=== PATIENT | female | born 1995 | race Caucasian/White ===

== ENCOUNTER 2019-01-09 09:24 | Emergency (ER) | payer SELFPAY ==
[~2019-01-09] VITALS: Ht 167.6 cm; Wt 110.4 kg
[2019-01-09 09:29] VITALS: BP 74/48
--- NOTE | 2019-01-09 09:42 | NUR ---
PT PLACED IN CHAIR C, WAITING FOR BED 9 TO BE CLEANED, ER MD NOTIFIED OF PT CONDITION.
--- NOTE | 2019-01-09 09:47 | NUR ---
PT TO ER BED 9
--- NOTE | 2019-01-09 10:25 | NUR ---
PATIENT PRESENTS TO ED WITH C/O STABBING CHEST PAIN THAT RADIATES TO BACK AND EPIGASTRIC PAIN. PAIN 8/10. PT C/O PAIN WHEN TAKING DEEP BREATHS. PT STATES PAIN STARTED YESTERDAY. PT TACHYCARDIC AT 120. EKG DONE. DR RESTREPO HAS EVALUATED PT.
[2019-01-09] MEDS ORDERED: NACL 0.9% 1,500 ML IV SCH (10:47)
[2019-01-09] MEDS ORDERED: KETOROLAC 30 MG/ML VIAL IVP ONE (10:50)
[2019-01-09] MEDS ORDERED: ONDANSETRON 4 MG/2 ML VIAL IVP ONE (10:50)
--- NOTE | 2019-01-09 11:05 | NUR ---
LAB AT BEDSIDE
--- NOTE | 2019-01-09 11:09 | NUR ---
US AT BEDSIDE
[2019-01-09 11:14] LABS: BASOPHILS % (AUTO) 0.2 % (0.0-2.0); EOSINOPHILS % (AUTO) 0.1 % (0.0-4.0); HEMATOCRIT 35.5 % (36-48); HEMOGLOBIN 11.5 g/dL (12.0-16.0); LYMPHOCYTES # (AUTO) 0.8 K/uL (2.5-16.5); LYMPHOCYTES % (AUTO) 7.6 % (20.5-51.1); MEAN CORPUSCULAR HEMOGLOBIN 23 pg (27-31); MEAN CORPUSCULAR HGB CONC 32 g/dL (33-37); MEAN CORPUSCULAR VOLUME 72.3 fL (80-94); MONOCYTES # (AUTO) 0.6 K/uL (0.8-1.0); MONOCYTES % (AUTO) 5.7 % (1.7-9.3); NEUTROPHILS % (AUTO) 86.4 % (42.2-75.2); PLATELET COUNT (AUTO) 342 K/uL (140-450); RED CELL DISTRIBUTION WIDTH 16.6 % (11.6-13.7); WHITE BLOOD COUNT (AUTO) 10.4 K/uL (4.8-10.8)
[2019-01-09 11:16] LABS: APPEARANCE,URINE SL CLOUDY (CLEAR); BILIRUBIN,URINE NEGATIVE (NEGATIVE); BLOOD, URINE NEGATIVE (NEGATIVE); COLOR,URINE YELLOW (YELLOW); LEUKOCYTE ESTERASE ,URINE NEGATIVE (NEGATIVE); NITRITE, URINE NEGATIVE (NEGATIVE); UGLUCOSE NEGATIVE (NEGATIVE)
[2019-01-09 11:33] LABS: RBC,URINE 0-5 /HPF (0-5); WBC,URINE 0-5 /HPF (0-5)
[2019-01-09 11:35] LABS: ANION GAP 15.7 (8-16); CARBON DIOXIDE 24.8 mmol/L (21-32); CREATININE 0.8 mg/dL (0.6-1.3); POTASSIUM 4.5 mmol/L (3.5-5.1)
[2019-01-09 11:36] LABS: PROTHROMBIN TIME 9.9 secs (10.8-13.4)
[2019-01-09 11:40] LABS: TOTAL BILIRUBIN 0.3 mg/dL (0.0-1.0)
--- NOTE | 2019-01-09 11:42 | NUR ---
XRAY AT BEDSIDE
--- NOTE | 2019-01-09 11:42 | NUR ---
XRAY AT BEDSIDE
[2019-01-09 13:45] VITALS: BP 109/70
--- NOTE | 2019-01-09 13:45 | NUR ---
Patient discharged with v/s stable. Written and verbal after care instructions given and explained. Patient alert, oriented and verbalized understanding of instructions. Ambulatory with steady gait. All questions addressed prior to discharge. ID band removed. Patient advised to follow up with PMD. Rx of Protonix given. Patient educated on indication of medication including possible reaction and side effects. Opportunity to ask questions provided and answered.
== END 2019-01-09 13:45 | disposition home or self-care (01) ==
LOC: MED 09:24
DX: K29.70 Gastritis, unspecified, without bleeding (principal)
CPT/HCPCS: 36415; 71045; 74018; 76705; 80053; 81001; 81025; 83605; 83690; 84484; 85025; 85610; 85730; 87040; 96361; 96374; 96375; 99284; J1885; J2405; J7030; Q0092; 93005